=== PATIENT | male | born 1935 | race Caucasian/White ===

== ENCOUNTER → 2018-06-25 | Outpatient (REF) | payer MEDICARE, BC ==
[~2018-06-25] MED LIST: AUGMENTIN875TAB OR; CARTIA XT120 MG/24 PO; CARVEDILOL25 MG PO; CHILD ASA81 MG; CIPROFLOXACN500 MG PO; COREG CR80 MG; DEPO-MEDROL80 MG/ML IM; DIGOXIN0.125 MG PO; FISH OIL1000 MG; FLEXERIL10 MG PO; LISINOPRIL5 MG PO; LORTAB 10 PO; METFORMIN1000 MG; PERCOCET 5/321 COMBO PO; ROCEPHIN 1 GM1 GM IM; WARFARIN
== END | disposition home or self-care (01) ==
LOC: MRI 09:02
PROVIDERS: ATTEND Internal Medicine
DX: R41.82 Altered mental status, unspecified (principal); I63.9 Cerebral infarction, unspecified

== ENCOUNTER 2018-07-19 10:00 | Observation (INO) | payer MEDICARE, BC ==
[~2018-07-19] VITALS: Ht 182.9 cm; Wt 101.4 kg
--- NOTE | 2018-07-19 10:00 | NUR ---
PT TO ROOM VIA EMS STRETCHER, A&O X 3.
--- NOTE | 2018-07-19 10:05 | NUR ---
PT AWAKE,ALERT AND ORIENTED X4. MID SCALP ABRASION CLEANSED AND COVERED. C/O LT KNEE, LT ANKLE AND LT FOOT PAIN. DENIES LOC. SIGNIFICANT OTHER AT BEDSIDE. PURPLE ECCHYMOSIS MOTED TO TOP OF LT FOOT.
[2018-07-19] MEDS ORDERED: ADULT ASPIRIN R81 MG PO (10:14)
[2018-07-19] MEDS ORDERED: WARFARIN4 MG PO (10:15)
[2018-07-19] MEDS ORDERED: COUMADIN5 MG PO (10:16)
[2018-07-19] MEDS ORDERED: CARVEDILOL25 MG PO (10:16)
[2018-07-19] MEDS ORDERED: GLIPIZIDE5 MG PO (10:17)
--- NOTE | 2018-07-19 11:06 | NUR ---
MEDICATED FOR PAIN TO LLE STATES THROBBING PAIN TO LT KNEE, LT ANKLE AND LT FOOT
[2018-07-19 11:16] LABS: HEMATOCRIT 35.6 % (39.0-50.0); HEMOGLOBIN 11.6 g/dl (14.0-18.0); IMMATURE GRANULOCYTES 0.3 % (0.0-5.0); MEAN CELL VOLUME 102.3 fL CALC (80.0-100.0); MEAN CORPUSCULAR HGB 33.3 pG CALC (26.0-32.0); MEAN CORPUSCULAR HGB CONC 32.6 g/L CALC (32.0-36.0); NEUT# 4.71 thou/uL (1.82-7.42); RED BLOOD COUNT 3.48 mill/uL (4.70-6.10); RED CELL DISTRI WIDTH 13.5 % (11.5-15.5)
[2018-07-19 11:29] LABS: ANION GAP 10 (6-22 (CALC)); BUN 27 mg/dL (8-23); BUN/CREATININE RATIO 26 (12-20 (CALC)); CARBON DIOXIDE 25 mmol/l (22-30); CHLORIDE 111 mmol/l (95-108); GFR > 60 ML/MIN (>=60 (CALC)); GFR FOR AFR.AMER. > 60 ML/MIN (>=60 (CALC)); POTASSIUM 4.8 mmol/l (3.5-5.1); SODIUM 141 mmol/l (137-146)
[2018-07-19 11:45] LABS: PROTHROMBIN TIME 51.5 SECONDS (9.0-12.5)
--- NOTE | 2018-07-19 12:10 | NUR ---
APPLIED MARIA ANTONIA WRAP TO LT ANKLE AND FOOT. PMD INTACT. PT STATES "SUPPORT MAKES IT FEEL BETTER". NO CHANGE IN ECCYMOSIS.
--- NOTE | 2018-07-19 12:46 | NUR ---
CALLED REPORT TO FLAQUITA ALFONSO.
--- NOTE | 2018-07-19 12:51 | NUR ---
PT ARRIVED TO [facility] AT 1251 VIA STRETCHER ACCOMPANIED BY STAFF AND . PT UP TO BED WITH UNSTEADY GAIT. PT HAS AN MARIA ANTONIA WRAP L FOOT. PT BLEEDING TO FOREHEAD FROM INJURY, PRESSURE DRESSING APPLIED, PT AND ORIENTED TO ROOM AND CALL LIGHT. LUNCH PROVIDED.ADMISSION ASSESSMENT COMPLETED. CALL LIGHT IN REACH,CONTINUE TO MONITOR.
--- NOTE | 2018-07-19 12:54 | NUR ---
TRANSPORTED TO [place] VIA STRETCHER ON TELE MONITOR IN NO DISTRESS, VSS. SIGNIFICANT OTHER IN ATTENDANCE.
[2018-07-19 17:00] VITALS: BP 115/57
[2018-07-19] MEDS ORDERED: LOSARTAN POT100 MG PO (17:41)
--- NOTE | 2018-07-19 17:59 | NUR ---
PHOTO OBTAINED OF ABRASION TO HEAD; DRESSING APPLIED. ABRASION NOT BLEEDING AT THIS TIME. RAYO APPLIED TO RLE NOT LEFT DUE TO INJURY. EDUCATED AND PT DEMONSTRATED USE OF IS, TOTAL VOLUME 2000. AT BEDSIDE, CALL LIGHT IN REACH,CONTINUE TO MONITOR.
[2018-07-19 20:00] VITALS: BP 159/67
--- NOTE | 2018-07-19 20:55 | NUR ---
PT MEDICATED ORDERS PROVIDE AND WITH TYLENOL FOR MILD HEADACHE. PT ASSESSMENT COMPLETED AT THIS TIME. NEURO'S INTACT, NO S/S DISTRESS, DENIES N/V. LOCX4. NO SLURRED SPEECH, ANSWERS QUESTIONS APPROPRIATELY. DRESSING TO L. ANKLE CDI, PT REFUSED ELEVATION OR ICE TO ANKLE. DRESSING TO HEAD CDI.
[2018-07-20 00:27] VITALS: BP 111/65
--- NOTE | 2018-07-20 00:30 | NUR ---
PT WAS SLEEPING WE ENTERED THE ROOM. PT LOCX3, NEURO'S INTACT. NO S/S OF DISTRESS NOTED. DRESSING TO HEAD CDI, DRESSING TO L FOOT INPLACE. TRACE EDEMA AND PULSE PALPABLE. BRUISING VISABLE TO LEFT FOOT. PT DENIES ANY OTHER NEEDS AT THIS TIME.
--- NOTE | 2018-07-20 02:25 | NUR ---
PT LOCX3, NEURO'S INTACT, DRESSING CDI. NO S/S OF DISTRESS NOTED. WILL CONTINUE TO MONITOR. PT RETURNING BACK TO SLEEP.
[2018-07-20 04:00] VITALS: BP 123/66
[2018-07-20 04:34] LABS: HEMATOCRIT 38.1 % (39.0-50.0); HEMOGLOBIN 12.5 g/dl (14.0-18.0); MEAN CELL VOLUME 101.9 fL CALC (80.0-100.0); MEAN CORPUSCULAR HGB 33.4 pG CALC (26.0-32.0); MEAN CORPUSCULAR HGB CONC 32.8 g/L CALC (32.0-36.0); RED BLOOD COUNT 3.74 mill/uL (4.70-6.10); RED CELL DISTRI WIDTH 13.4 % (11.5-15.5)
[2018-07-20 05:05] LABS: CREATININE 1.4 mg/dL (0.7-1.3); MAGNESIUM 2.1 mg/dL (1.6-2.3); POTASSIUM 5.1 mmol/l (3.5-5.1)
--- NOTE | 2018-07-20 05:28 | NUR ---
PT WAS SLEEPING WE ENTERED THE ROOM. LOCX3,NEURO'S INTACT. STRONG PULSE AND CIRCULATION TO LEFT FOOT, DRESSING IN PLACE. DRESSING TO HEAD IS CDI. PT DENIES ANY NEEDS AT THIS TIME. NO S/S OF DISTRESS NOTED. 1+EDEMA AND BRUISING TO LEFT FOOT VISABLE. PT ENCOURAGED TO ELEVATE FOOT, DENIES ICEPACK TO FOOT. CALL LIGHT IS AT BEDSIDE AND PT ENCOURAGED TO CALL FOR ASSISTANCE NEEDS ARISE.
[2018-07-20 06:21] LABS: URINE BILIRUBIN - DIPSTICK NEGATIVE (NEGATIVE); URINE BLOOD DIPSTICK TRACE-INTACT (NEGATIVE); URINE COLOR YELLOW; URINE GLUCOSE - DIPSTICK NEGATIVE (NEGATIVE); URINE KETONE TRACE mg/dL (NEGATIVE); URINE LEUK ESTERASE NEGATIVE (NEGATIVE); URINE NITRITE - DIPSTICK NEGATIVE (Negative); URINE PROTEIN - DIPSTICK NEGATIVE (NEG-TRACE); URINE SPECIFIC GRAVITY >=1.030; URINE UROBILINOGEN - DIPSTICK 0.2 E.U./dL (0.2)
[2018-07-20 06:22] LABS: URINE CLARITY SL CLOUDY
--- NOTE | 2018-07-20 07:28 | NUR ---
REPORT RECEIVED FROM GIUSEPPE ESPOSITO; PT LAYING IN BED AWAKE STATED HE WANTS TO SLEEP; RESP EVEN AND UNLABORED; WILL CONTINUE TO MONITOR.
[2018-07-20 07:52] VITALS: BP 128/65
--- NOTE | 2018-07-20 08:00 | NUR ---
ASSESSMENT COMPLETED; PT A/O X3; DRESSING TO HEAD CDI; NO NEURO ABNORMALITIES NOTED; IV FLUSED WITHOUT DIFFICUTLY, NO REDNESS OR EDEMA TO AREA; MARIA ANTONIA WRAP TO L.FOOT; TRACE EDEMA AND BRUSING NOTED TO L. FOOT; TELE IN PLACE SR 65 WITH AVB ON MONITOR; PT VOICED NO CONCERNS; BED IN LOW LOCKED POSITION; WILL CONTINUE TO MONITOR.
[2018-07-20 09:30] LABS: INTERNATIONAL NORMALIZED RATIO 3.7 RATIO (0.7-1.3); PROTHROMBIN TIME 38.1 SECONDS (9.0-12.5)
[2018-07-20 11:05] VITALS: BP 120/69
--- NOTE | 2018-07-20 12:29 | NUR ---
PT VISITION WITH HIS AT ; DRESSING FROM FOREHEAD REMOVED; ABRASION CLEANED WITH NS, LEFT TO AIR; PT TOLERATED WELL; WILL CONTINUE TO MONITOR.
--- NOTE | 2018-07-20 13:30 | NUR ---
PT AMUBLATED WITH STEADY GAIT TO W/C; TO U.S ACCOMPANIED BY VOLUNTEER PATEL PASS SENT WITH VOLUNTEER.
--- NOTE | 2018-07-20 14:06 | NUR ---
PT BACK ON FLOOR ACCOMPAINED BY A VOLUNTEER.
[2018-07-20 15:42] VITALS: BP 108/59
--- NOTE | 2018-07-20 16:15 | NUR ---
PT LAYING IN BED WITH EYES CLOSED; AT BS IN RECLINER; IV PATENT NS INFUSING AT 100CC/HR, SITE APPEARS HEALTHY; CALL LOPEZ IN REACH; WILL CONTINUE TO MONITOR.
--- NOTE | 2018-07-20 17:32 | NUR ---
PT SITTING UP EDGE OF BED EATING SUPPER, AT BS. NO S/S OF DISTRESS NOTED.
--- NOTE | 2018-07-20 19:35 | NUR ---
BEDSIDE REPORT RECEIVED FROM PATTY ORNELAS. PT RESTING IN BED SUPINE; ALERT AND OREINTED. DENIES PAIN. RESPIRATIONS EVEN AND UNLABORED ON ROOM AIR. PLAN OF CARE DISCUSSED. PT ENCOURAGED TO VERBALIZE CONCERN. STATES UNDERSTANDING. SAFETY MEASURES IN PLACE. CALL LIGHT WITHIN REACH.
[2018-07-20 20:16] VITALS: BP 119/65
--- NOTE | 2018-07-20 20:40 | NUR ---
TYLENOL GIVEN FOR LEFT KNEE PAIN. PT AMBULATED INTO BATHROOM WITH WALKER AND STAND BY ASSIST.
[2018-07-21] VITALS: BP 128/62
--- NOTE | 2018-07-21 | NUR ---
PT ASLEEP AT THIS TIME WITH NO SIGNS OF DISTRESS. RESPIRATIONS EVEN AND UNLABORED ON ROOM AIR. IV FLUIDS INFUSING WITHOUT DIFFICULTY; IV SITE SLIGHLY BLOODY, BUT APPEARS HEALTHY AND IS AN EMS SITE. PT DECLINED NEW IV SITE; WILL CONTINUE TO MONITOR CURRENT SITE. STAND BY ASSIST; AMBULATES WITH WALKER. SAFETY MEASURES IN PLACE. CALL LIGHT WITHIN REACH.
[2018-07-21 04:00] VITALS: BP 138/73
--- NOTE | 2018-07-21 04:00 | NUR ---
NO ACUTE CHANGES IN CONDITION THROUGHOUT THE NIGHT. PT AWAKENS SPONTANEOUSLY FOR VS AND LAB WORK. REQUESTS TYLENOL FOR LEFT KNEE TENDERNESS. MARIA ANTONIA WRAP REMAINS IN PLACE TO LEFT FOOT FOR COMFORT.
[2018-07-21 05:36] LABS: HEMATOCRIT 34.2 % (39.0-50.0); HEMOGLOBIN 11.2 g/dl (14.0-18.0); IMMATURE GRANULOCYTES 0.5 % (0.0-5.0); MEAN CELL VOLUME 101.8 fL CALC (80.0-100.0); MEAN CORPUSCULAR HGB 33.3 pG CALC (26.0-32.0); MEAN CORPUSCULAR HGB CONC 32.7 g/L CALC (32.0-36.0); NEUT# 4.09 thou/uL (1.82-7.42); RED BLOOD COUNT 3.36 mill/uL (4.70-6.10); RED CELL DISTRI WIDTH 13.3 % (11.5-15.5)
[2018-07-21 05:44] LABS: PROTHROMBIN TIME 26.6 SECONDS (9.0-12.5)
[2018-07-21 05:45] LABS: ANION GAP 11 (6-22 (CALC)); BUN 25 mg/dL (8-23); BUN/CREATININE RATIO 23 (12-20 (CALC)); CARBON DIOXIDE 26 mmol/l (22-30); CHLORIDE 107 mmol/l (95-108); CREATININE 1.1 mg/dL (0.7-1.3); GFR > 60 ML/MIN (>=60 (CALC)); GFR FOR AFR.AMER. > 60 ML/MIN (>=60 (CALC)); INTERNATIONAL NORMALIZED RATIO 2.6 RATIO (0.7-1.3); SODIUM 139 mmol/l (137-146)
--- NOTE | 2018-07-21 07:22 | NUR ---
REPORT RECEIVED FROM GIUSEPPE BANSAL. PT LAYING IN BED AWAKE NO S/S OF DISTRESS NOTED; WILL CONINUE TO MONITOR.
[2018-07-21 09:14] VITALS: BP 133/71
--- NOTE | 2018-07-21 09:15 | NUR ---
PT LAYING IN AWAKE, RESP EVEN AND UNLABORED; MEDICATED PER EMAR; NO S/S OF DISTRESS NOTED; PT EAGER TO GO HOME TODAY; PT REQUESTED MARIA ANTONIA WRAP BE REMOVED FROM L. FOOT; FOOT REMAINS BRUISED; TRACE EDEMA NOTED TO L. FOOT; IV PATENT; NO S/S OF DISTRESS NOTED; CALL LOPEZ IN REACH; BED IN LOW LOCKED POSITION; WILL CONTINUE TO MONITOR
--- NOTE | 2018-07-21 09:30 | NUR ---
PHYSICAL THERAPY AT BED SIDE TO AMBULATE PT.
--- NOTE | 2018-07-21 11:05 | NUR ---
PT WAS SEEN THIS AM FOR GT. CAME OUT OF THE TOILET WITH RW AND POLE. ASSISTED PT IN PULLING THE POLE OUT. STARTED WITH GT WITH GBELT, RW AND SBA. HE WAS ABLE TO AMB 100 FT. X 4 WITH [address] IN BETWEEN ROUNDS. PT WAS INSTRUCTED ON PROPER GAIT AND WAS ENCOURAGED ON BENDING AND STRAIGHTENING L KNEE ON PRESWING AND MIDSTANCE PHASES RESPECTIVELY. HE DEMONSTRATED STABLE BALANCE AND GAIT WITH RW, INFREQUENTLY COMPLAINING OF PAIN ON L KNEE PS 5-6/10. PT RETURNED TO BED AND WAS TAUGHT ON PERFORMING LAQ WITH ISOMETRIC HOLD X 10 SH X 2 SETS NO ADVERSE RXNS NOTED OR REPORTED AT THE END OF TX. ADVISED PT TO APPLY COLD PACK ON KNEE X 10-15 MINS. AT LEAST 3X A DAY. LEFT PT W/ IN THE RM.
[2018-07-21 11:23] VITALS: BP 103/57
--- NOTE | 2018-07-21 11:54 | NUR ---
PT SITTING UP IN BED EATING LUNCH, AT BEDSIDE; NO S/S OF DISTRESS NOTED.
--- NOTE | 2018-07-21 12:27 | NUR ---
DR RAE AT TO DISCUSS POC.
--- NOTE | 2018-07-21 12:35 | NUR ---
PT IN THE SHOWER, TELE REMOVED, PRESENT IN ROOM.
--- NOTE | 2018-07-21 14:11 | NUR ---
Discharge instructions given. Patient verbalizes understanding of same. Discharged in stable condition via Wheelchair to Home with spouse. All belongings sent with pt.
== END 2018-07-21 14:16 | disposition home or self-care (01) ==
LOC: ED 10:00 → ED-I 11:52 → ED 12:02 → MS2 12:03
PROVIDERS: Family Medicine; Nurse Practitioner Family; ADMIT Internal Medicine; ATTEND Internal Medicine
DX: S00.81XA Abrasion of other part of head, initial encounter (principal); S80.02XA Contusion of left knee, initial encounter; S90.02XA Contusion of left ankle, initial encounter; S90.32XA Contusion of left foot, initial encounter; D68.32 Hemorrhagic disorder due to extrinsic circulating anticoagulants; T45.515A Adverse effect of anticoagulants, initial encounter; N17.9 Acute kidney failure, unspecified; E86.0 Dehydration; I10 Essential (primary) hypertension; E11.9 Type 2 diabetes mellitus without complications; W10.9XXA Fall (on) (from) unspecified stairs and steps, initial encounter; Y93.89 Activity, other specified; Y92.009 Unspecified place in unspecified non-institutional (private) residence as the place of occurrence of the external cause; Z79.01 Long term (current) use of anticoagulants; Z95.2 Presence of prosthetic heart valve

== ENCOUNTER 2019-01-16 20:14 | Emergency (ER) | payer MEDICARE, BC ==
[~2019-01-16] VITALS: Ht 182.9 cm; Wt 96.8 kg
[~2019-01-16 20:14] MED LIST changes: +ADULT ASPIRIN R81 MG PO; +COUMADIN5 MG PO; +GLIPIZIDE5 MG PO; +LOSARTAN POT100 MG PO; +WARFARIN4 MG PO
[2019-01-16 21:17] LABS: INTERNATIONAL NORMALIZED RATIO 1.5 RATIO (0.7-1.3); PROTHROMBIN TIME 15.7 SECONDS (9.0-12.5)
[2019-01-16 21:30] VITALS: BP 120/68
[2019-01-17] MEDS ORDERED: COUMADIN5 MG PO (09:29)
[2019-01-17] MEDS ORDERED: WARFARIN4 MG PO (09:30)
== END 2019-01-16 21:30 | disposition home or self-care (01) ==
LOC: ED 20:14
PROVIDERS: Family Medicine
DX: L76.21 Postprocedural hemorrhage of skin and subcutaneous tissue following a dermatologic procedure (principal); I10 Essential (primary) hypertension; Y83.8 Other surgical procedures as the cause of abnormal reaction of the patient, or of later complication, without mention of misadventure at the time of the procedure; Z95.2 Presence of prosthetic heart valve

== ENCOUNTER 2019-01-17 08:27 | Emergency (ER) | payer MEDICARE, BC ==
[~2019-01-17] VITALS: Ht 182.9 cm; Wt 110.0 kg
[2019-01-17] MEDS ORDERED: COUMADIN5 MG PO (09:29)
[2019-01-17] MEDS ORDERED: WARFARIN4 MG PO (09:30)
[2019-01-17 10:12] LABS: HEMATOCRIT 35.5 % (39.0-50.0); HEMOGLOBIN 11.2 g/dl (14.0-18.0); IMMATURE GRANULOCYTES 0.4 % (0.0-5.0); MEAN CELL VOLUME 102.9 fL CALC (80.0-100.0); MEAN CORPUSCULAR HGB 32.5 pG CALC (26.0-32.0); MEAN CORPUSCULAR HGB CONC 31.5 g/L CALC (32.0-36.0); NEUT# 4.2 thou/uL (1.82-7.42); RED BLOOD COUNT 3.45 mill/uL (4.70-6.10); RED CELL DISTRI WIDTH 14.3 % (11.5-15.5)
[2019-01-17 10:29] LABS: ACT PARTIAL THROMBO TIME 41.3 SECONDS (20.0-32.5); INTERNATIONAL NORMALIZED RATIO 1.5 RATIO (0.7-1.3); PROTHROMBIN TIME 15.8 SECONDS (9.0-12.5)
[2019-01-17 10:33] LABS: ALKALINE PHOSPHATASE 54 u/l (38-126); ANION GAP 12 (6-22 (CALC)); BILIRUBIN, TOTAL 0.7 mg/dL (0.0-1.4); BUN 34 mg/dL (8-23); BUN/CREATININE RATIO 28 (12-20 (CALC)); CARBON DIOXIDE 24 mmol/l (22-30); CHLORIDE 108 mmol/l (95-108); CREATININE 1.2 mg/dL (0.7-1.3); GFR 58 ML/MIN (>=60 (CALC)); GFR FOR AFR.AMER. > 60 ML/MIN (>=60 (CALC)); POTASSIUM 4.9 mmol/l (3.5-5.1); SGOT/AST 47 u/l (19-48); SODIUM 140 mmol/l (137-146); TOTAL PROTEIN 6.9 g/dL (6.3-8.2)
[2019-01-17 10:46] VITALS: BP 136/65
== END 2019-01-17 11:10 | disposition home or self-care (01) ==
LOC: ED 08:27
PROVIDERS: Emergency Medicine
PROC: 0HQKXZZ Repair Right Lower Leg Skin, External Approach (ICD-10-PCS; principal; 2019-01-17)
DX: L76.21 Postprocedural hemorrhage of skin and subcutaneous tissue following a dermatologic procedure (principal); I10 Essential (primary) hypertension; Y83.8 Other surgical procedures as the cause of abnormal reaction of the patient, or of later complication, without mention of misadventure at the time of the procedure; Z79.01 Long term (current) use of anticoagulants; Z95.2 Presence of prosthetic heart valve

== ENCOUNTER 2022-11-06 14:02 | Observation (INO) | payer MEDICARE ==
[2022-11-06] VITALS (9 sets, daily range): BP systolic 105–135; BP diastolic 52–81
[~2022-11-06] VITALS: Ht 182.9 cm; Wt 89.4 kg
--- NOTE | 2022-11-06 14:18 | NUR ---
PATIENT ARRIVED IN ED VIA EMS AND TAKEN TO ROOM 12.
[2022-11-06 14:43] LABS: BASO% 0.6 % (0-3); EOS% 1.5 % (0-8); HEMOGLOBIN 11.5 g/dl (14.0-18.0); IMMATURE GRANULOCYTES 0.2 % (0.0-5.0); LYMPH% 18.1 % (15-41); MEAN CORPUSCULAR HGB 33.6 pG CALC (26.0-32.0); MEAN CORPUSCULAR HGB CONC 31.4 g/dL CAL (32.0-36.0); MONO% 8.8 % (2-13); NEUT# 3.4 thou/uL (1.82-7.42); NEUT% 70.8 % (42-76); RED BLOOD COUNT 3.42 mill/uL (4.70-6.10); RED CELL DISTRI WIDTH 14.3 % (11.5-15.5)
[2022-11-06 14:45] LABS: HEMATOCRIT 36.6 % (39.0-50.0)
[2022-11-06 14:54] LABS: ALBUMIN 4.1 g/dL (3.2-5.0); BILIRUBIN, TOTAL 0.7 mg/dL (0.2-1.3); CREATININE 1.6 mg/dL (0.7-1.3); POTASSIUM 5.1 mmol/l (3.5-5.1); TOTAL PROTEIN 7.6 g/dL (6.3-8.2)
[2022-11-06 15:12] LABS: INTERNATIONAL NORMALIZED RATIO 2.2 RATIO (0.7-1.3); PROTHROMBIN TIME 20.8 SECONDS (9.0-12.5)
--- NOTE | 2022-11-06 15:17 | NUR ---
Reassessment of patient completed. No distress noted.
--- NOTE | 2022-11-06 16:36 | NUR ---
Reassessment of patient completed. No distress noted.
[2022-11-06] MEDS ORDERED: NOVOLOG FL100 UNIT/M SC (16:58)
[2022-11-06] MEDS ORDERED: ZOFRAN4 MG/TAB PO (16:59)
[2022-11-06] MEDS ORDERED: DIGOXIN0.125 MG PO (17:00)
[2022-11-06] MEDS ORDERED: BUMETANIDE1 MG PO (17:00)
[2022-11-06] MEDS ORDERED: LANTUS SOL100 UNIT/M SC (17:01)
[2022-11-06] MEDS ORDERED: CHOLESTYRAMINE (17:02)
[2022-11-06] MEDS ORDERED: METOLAZONE5 MG PO (17:03)
[2022-11-06] MEDS ORDERED: HYDROCODONE BIT1 TA9 PO (17:04)
--- NOTE | 2022-11-06 17:04 | NUR ---
MED LIST FAXED AND RECONCILED FROM [facility].
--- NOTE | 2022-11-06 20:30 | NUR ---
PT BROUGHT UP FROM ER @1950 VIA STRETCHER. DID NOT RECEIVE REPORT FROM ER NURSE. PT IS A/OX3. SKIN TEAR ON THE RT TEMPORAL REGION NOTED AND OPEN WOUND ON THE LEFT ELBOW. PICTURES TAKEN OF BOTH. HEAD WOUND DRESSED WITH 4X4 GAUZE AND WRAPPED WITH COBAN. EBLOW WOUND PUT BANDAGE ON. PT DENIES ANY PAIN AT THIS TIME. ASSESSMENT COMPLATED. IV SITE APPEARS HEALTHY AND FLUSHES. PT EDUCATED TILTING SAW OPERATOR LIGHT AND SAFETY PRECAUTIONS.
[2022-11-07] VITALS (7 sets, daily range): BP systolic 108–134; BP diastolic 59–73
--- NOTE | 2022-11-07 00:05 | NUR ---
PT LAYING IN BED. O2 SATURATION WAS BELOW 90 WHILE SLEEPING. PT STATED USING A CPAP AT HOME FOR SLEEP. PROVIDED PT TIH NASAL CANNULA ON 2L O2. PT O2 SATURATION SUSTAINING AT 95%. CALL LIGHT WITHIN REACH AND SAFETY PRECAUTIONS IN PLACE.
--- NOTE | 2022-11-07 04:48 | NUR ---
PT LAYING IN BED. LAB IN ROOM WITH PT. DENIES ANY PAIN AT THIS TIME. CALL LIGHT WIHTIN REACH AND SAFETY PRECAUTIONS IN PLACE.
[2022-11-07 05:54] LABS: HEMOGLOBIN 11.1 g/dl (14.0-18.0); MEAN CELL VOLUME 106.8 fL CALC (80.0-100.0); MEAN CORPUSCULAR HGB 32.9 pG CALC (26.0-32.0); MEAN CORPUSCULAR HGB CONC 30.8 g/dL CAL (32.0-36.0); RED BLOOD COUNT 3.37 mill/uL (4.70-6.10); RED CELL DISTRI WIDTH 14.2 % (11.5-15.5)
[2022-11-07 06:23] LABS: ALBUMIN 3.7 g/dL (3.2-5.0); ALKALINE PHOSPHATASE 63 u/l (38-126); ANION GAP 8 (6-22 (CALC)); BILIRUBIN, TOTAL 0.9 mg/dL (0.2-1.3); BUN 32 mg/dL (8-23); BUN/CREATININE RATIO 24 (12-20 (CALC)); CARBON DIOXIDE 30 mmol/l (22-30); CHLORIDE 105 mmol/l (95-108); CREATININE 1.3 mg/dL (0.7-1.3); GFR FOR AFR.AMER. > 60 ML/MIN (>=60 (CALC)); GFR OTHER RACES 52 ML/MIN (>=60 (CALC)); MAGNESIUM 2.2 mg/dL (1.6-2.3); POTASSIUM 4.4 mmol/l (3.5-5.1); SGOT/AST 27 u/l (19-48); SODIUM 139 mmol/l (137-146); TOTAL PROTEIN 6.9 g/dL (6.3-8.2)
--- NOTE | 2022-11-07 07:45 | NUR ---
PT RESTING IN BED WATCHING TV. NO APPARENT DISTRESS NOTED. BANDAGE NOTED TO HEAD, CDI. PT DENIES ANY PAIN OR DIZZINESS AT THIS TIME. O2 @ 2L/M VIA NC, NOT HOME DEPENDENT. SAT 95 % WITH O2, O2 REMOVED AND PT DESAT TO 85%. PT STATES HAS BEEN HAVING UPPER RESPIRATORY SYMPTOMS FOR PAST COUPLE OF DAYS PRIOR TO SYNCOPAL EPISODE. ORTHOSTATIC VITAL SIGNS OBTAINED AT THIS TIME. LAYING 122/70, 68, SITTING 125/65, 67, STANDING 110/58, 69. PT DENIES ANY DIZZINESS DURING THIS PROCESS. COMPRESSION STOCKINGS IN PLACE TO BLE, TRACE EDEMA NOTED. IV SITE APPEARS HEALTHY. DISCUSSED POC AND SAFETY PRECAUTIONS. PT VERBALIZED UNDERSTANDING. CALL LIGHT WITHIN REACH. WILL CONTINUE TO MONITOR.
[2022-11-07] MEDS ORDERED: FUROSEMIDE20 MG PO (09:54)
--- NOTE | 2022-11-07 10:46 | NUR ---
DR. GARNETT AT BEDSIDE.
--- NOTE | 2022-11-07 11:40 | NUR ---
PT NOTED RESTING IN BED. PER CONTINUING EDUCATION DEAN PT HR DROPPED DOWN TO 40S AND BACK UP TO 60S A COUPLE OF TIME. NOTIFIED MUNA MAK. PT HAS HX OF SLEEP APNEA AND DOES NOT HAVE CPAP MACHINE ON AT THIS TIME. WILL CONTINUE TO MONITOR. PT CONTINUES TO WEAR 2L/M VIA NC.
--- NOTE | 2022-11-07 15:43 | NUR ---
pt resting in bed. no apparent distress noted. remains at bedside. o2 @ 1l/m via nc. call light within reach. will continue to monitor.
--- NOTE | 2022-11-07 20:25 | NUR ---
RECEIVED REPORT FROM PATTY PALOMARES. PT RESTING ON BED LOW FOWLERS POSITION: A&O X3. EVEN AND UNLABORED RESPIRATIONS; CRACKLES UPPER LOBES, EXPIRATORY WHEEZING TO LOWER LOBES. O2 @ 2L VIA NASAL CANNULA IN PLACE. IV SITE HEALTHY AND PATENT. HYPERACTIVE BOWEL SOUNDS X4 QUADRANTS. SCALP ABRASION TO RT SIDE OF HEAD NOTED. PT DENIES PAIN AT THIS TIME. BED ALARM ACTIVE WITH SAFETY PRECAUTIONS IN PLACE. CALL LIGHT IN REACH.
--- NOTE | 2022-11-08 | NUR ---
PT RESTING ON BED TO HIS RT SIDE. VS COMPLETED. NO DISTRESS OR PAIN NOTED. O2 @ 2L VIA NASAL CANNULA IN PLACE; O2 SAT 93%. IV SITE INFUSING FLUIDS PER ORDER. BED ALARM ACTIVE AND SAFETY PRECAUTIONS IN PLACE. CALL LIGHT IN REACH.
[2022-11-08 05:14] VITALS: BP 131/66
--- NOTE | 2022-11-08 05:14 | NUR ---
PT RESTING ON BECOMFORTABLY. NO DISTRESS NOTED. PT DENIES PAIN AT THIS TIME. VS COMPLETED. CLEAN GOWN PROVIDED. IV SITE INFUSING FLUIDS PER ORDER. BED ALARM ACTIVE WITH SAFETY PRECAUTIONS IN PLACE. CALL LIGHT IN REACH.
[2022-11-08 05:54] LABS: BASO% 0.5 % (0-3); EOS% 2.9 % (0-8); HEMATOCRIT 36.5 % (39.0-50.0); HEMOGLOBIN 11.5 g/dl (14.0-18.0); IMMATURE GRANULOCYTES 0.2 % (0.0-5.0); LYMPH% 15.9 % (15-41); MEAN CELL VOLUME 106.7 fL CALC (80.0-100.0); MEAN CORPUSCULAR HGB 33.6 pG CALC (26.0-32.0); MEAN CORPUSCULAR HGB CONC 31.5 g/dL CAL (32.0-36.0); MONO% 9.3 % (2-13); NEUT# 3.89 thou/uL (1.82-7.42); NEUT% 71.2 % (42-76); RED BLOOD COUNT 3.42 mill/uL (4.70-6.10); RED CELL DISTRI WIDTH 14.2 % (11.5-15.5)
[2022-11-08 06:13] LABS: INTERNATIONAL NORMALIZED RATIO 2.1 RATIO (0.7-1.3); PROTHROMBIN TIME 20.2 SECONDS (9.0-12.5)
[2022-11-08 06:15] LABS: ALBUMIN 3.7 g/dL (3.2-5.0); BILIRUBIN, TOTAL 0.6 mg/dL (0.2-1.3); CREATININE 1.4 mg/dL (0.7-1.3); POTASSIUM 4.2 mmol/l (3.5-5.1); TOTAL PROTEIN 7.1 g/dL (6.3-8.2)
[2022-11-08 06:46] VITALS: BP 136/65
--- NOTE | 2022-11-08 08:00 | NUR ---
pt awake in bed; offers no complaints; tele intact; call light within reach;
[2022-11-08 09:05] VITALS: BP 136/65
--- NOTE | 2022-11-08 12:00 | NUR ---
PATIENT aaoXO3, RESP EASY. EATING LUNCH AND NO CO'S OFFERED. CALL LOPEZ IN REACH AND BED.
[2022-11-08] MEDS ORDERED: DOXYCYCLINE100 MG PO (14:09)
--- NOTE | 2022-11-08 15:00 | NUR ---
Discharge instructions given. Patient verbalizes understanding of same. Discharged in stable condition via Wheelchair to Home with spouse. All belongings sent with pt.
--- NOTE | 2022-11-08 16:07 | NUR ---
received call from Dr Lenz; clarification given in regards to prior resp event called; HR/BP reviewed; orders to be placed
== END 2022-11-08 14:57 | disposition home or self-care (01) ==
LOC: ED 14:02 → ED-I 15:01 → ED 16:35 → MS2 16:36
PROVIDERS: Family Medicine; Nurse Practitioner Family; ADMIT Internal Medicine; ATTEND Internal Medicine
DX: J18.9 Pneumonia, unspecified organism (principal); S00.01XA Abrasion of scalp, initial encounter; I13.0 Hypertensive heart and chronic kidney disease with heart failure and stage 1 through stage 4 chronic kidney disease, or unspecified chronic kidney disease; I50.22 Chronic systolic (congestive) heart failure; E11.22 Type 2 diabetes mellitus with diabetic chronic kidney disease; N18.31 Chronic kidney disease, stage 3a; G47.30 Sleep apnea, unspecified; W18.39XA Other fall on same level, initial encounter; Y92.000 Kitchen of unspecified non-institutional (private) residence as the place of occurrence of the external cause; Z79.01 Long term (current) use of anticoagulants; Z95.2 Presence of prosthetic heart valve; Z79.84 Long term (current) use of oral hypoglycemic drugs; Z20.822 Contact with and (suspected) exposure to COVID-19

== ENCOUNTER 2023-01-29 18:44 | Emergency (ER) | payer MEDICARE ==
[~2023-01-29] VITALS: Ht 182.9 cm; Wt 86.0 kg
[~2023-01-29 18:44] MED LIST changes: +BUMETANIDE1 MG PO; +CHOLESTYRAMINE; +DOXYCYCLINE100 MG PO; +FUROSEMIDE20 MG PO; +HYDROCODONE BIT1 TA9 PO; +LANTUS SOL100 UNIT/M SC; +METOLAZONE5 MG PO; +NOVOLOG FL100 UNIT/M SC; +ZOFRAN4 MG/TAB PO
[2023-01-29 18:57] VITALS: BP 136/60
== END 2023-01-29 20:06 | disposition home or self-care (01) ==
LOC: ED 18:44
DX: S80.812A Abrasion, left lower leg, initial encounter (principal); I13.0 Hypertensive heart and chronic kidney disease with heart failure and stage 1 through stage 4 chronic kidney disease, or unspecified chronic kidney disease; E11.22 Type 2 diabetes mellitus with diabetic chronic kidney disease; N18.30 Chronic kidney disease, stage 3 unspecified; I50.9 Heart failure, unspecified; W54.8XXA Other contact with dog, initial encounter; Y92.009 Unspecified place in unspecified non-institutional (private) residence as the place of occurrence of the external cause; Z79.01 Long term (current) use of anticoagulants; Z79.4 Long term (current) use of insulin; Z95.2 Presence of prosthetic heart valve

== ENCOUNTER 2023-01-29 23:11 | Emergency (ER) | payer MEDICARE ==
[~2023-01-29] VITALS: Ht 182.9 cm; Wt 78.0 kg
[2023-01-30 00:01] VITALS: BP 138/74
== END 2023-01-30 00:31 | disposition home or self-care (01) ==
LOC: ED 23:11
PROC: 0HQLXZZ Repair Left Lower Leg Skin, External Approach (ICD-10-PCS; principal; 2023-01-29)
DX: S81.812A Laceration without foreign body, left lower leg, initial encounter (principal); I13.0 Hypertensive heart and chronic kidney disease with heart failure and stage 1 through stage 4 chronic kidney disease, or unspecified chronic kidney disease; E11.22 Type 2 diabetes mellitus with diabetic chronic kidney disease; I50.9 Heart failure, unspecified; N18.30 Chronic kidney disease, stage 3 unspecified; W54.8XXA Other contact with dog, initial encounter; Z95.2 Presence of prosthetic heart valve; Z79.4 Long term (current) use of insulin; Z79.01 Long term (current) use of anticoagulants; S80.812A Abrasion, left lower leg, initial encounter; Y92.009 Unspecified place in unspecified non-institutional (private) residence as the place of occurrence of the external cause